=== PATIENT | male | born 1965 | race Caucasian/White ===

== ENCOUNTER 2023-08-05 09:49 | Outpatient (CLI) | payer OTHER, SELFPAY ==
--- NOTE | 2023-08-05 10:15 | MR_ITS ---
[address] [address] Phone:?[phone] Fax:?[phone] Referring Physician Information: Ken Cedillo M.D. [address] [place] [id number] Phone:?[phone] Fax:?[phone] Patient:?Omid Corral D.O.B:?1965 Sex:?Male Phone:?[phone] [facility] MRN:?[id number] Exam Date:?08/05/2023 EXAM: MRI OF THE RIGHT KNEE CLINICAL INFORMATION: The patient is a 57-year-old with right knee pain. Evaluate for meniscal tear. PRIOR SURGERY: None reported. COMPARISON STUDIES: Comparison is made to prior radiographs dated 07/27/2023. TECHNICAL INFORMATION: Imaging was performed on a high-field, 1.5 Charlee MR scanner. Axial proton-density and fat-suppressed T2 imaging of the right knee was performed in addition to coronal proton-density and coronal STIR imaging. Sagittal proton-density and fat-suppressed proton-density imaging was also produced. FINDINGS: Articular/Extraarticular collections: Effusion: Moderate. Popliteal cyst: Minimal. Loose bodies: No well-defined intra-articular loose bodies are identified. Subcutaneous and extraarticular soft tissues: Nonspecific subcutaneous soft tissue edema and/or hemorrhage can be seen along the anterior and medial aspects of the right knee. Osseous structures: There are broad-based areas of increased marrow signal intensity seen along the central and medial aspects of the medial femoral condyle and medial tibial plateau with curvilinear low signal intensity along the posterior weightbearing surfaces. The findings are nonspecific but may relate to areas of traumatic or stress change. The findings may also relate to reactive bony change relating to meniscal tearing and chondral loss described below. There are areas of cortical irregularity, subcortical edema, and subcortical cystic change along the lateral articular surfaces of the patellofemoral articulation, in keeping with chondromalacia and chondral loss described below. Benign-appearing cystic or chondroid changes within the distal femoral diaphysis can be seen on sagittal series 6 image 13 and on coronal series 8 image 14. No other bony abnormalities about the knee are seen. Ligamentous structures: ACL: Intact and normal in appearance. PCL: Intact and normal in appearance. MCL: Intact and normal in appearance. LCL: Intact and normal in appearance. Posterolateral corner: Intact and normal in appearance. Posteromedial corner: No posteromedial corner soft tissue injury. Semimembranosus and pes anserine tendons demonstrate no tendinopathy or associated bursitis. Extensor mechanism/Patellar retinacular structures: Patellar tendon: Intact, without tendinopathy. Quadriceps tendon: Intact, without tendinopathy. Retinacula: The medial and lateral retinacula are intact. The medial patellofemoral ligament is intact. Medial compartment: Medial meniscus: The medial meniscus is abnormal in appearance. There is apical free edge as well as superior and inferior surface tearing of the posterior horn of the medial meniscus seen on sagittal series 6 images 22 and 23, measuring approximately 14 mm in mediolateral dimension. The middle and anterior portions of the medial meniscus appear intact. No definite parameniscal cyst formation is identified. Medial femoral condyle: Full-thickness and near full-thickness chondral loss can be seen along the central and posterior weightbearing surfaces of the medial femoral condyle on sagittal series 6 image 23 and on coronal series 8 image 19, measuring 22 mm in greatest dimension. Medial tibial plateau: Grade II to III chondromalacia can be seen along the central and posterior weightbearing surfaces of the medial tibial plateau. Lateral compartment: Lateral meniscus: Degeneration of the lateral meniscus can be seen without definite areas of well-defined tearing. There is no evidence for parameniscal cyst formation. No meniscocapsular separation injury is identified. Lateral femoral condyle: Full-thickness or near full-thickness chondral loss can be seen along the central and posterior weightbearing surfaces of the lateral femoral condyle. Lateral tibial plateau: Broad-based changes of grade II to III chondromalacia can be seen along the weightbearing surfaces of the lateral tibial plateau. Patellofemoral compartment: Patella: Broad-based, full-thickness chondral loss can be seen along the lateral patellar facet on axial series 3 image 6, measuring 32 mm in mediolateral dimension. Underlying bony changes are seen. Trochlea: Full-thickness and near full-thickness chondral loss can be seen along the lateral articular surfaces of the femoral trochlea. Underlying bony changes are noted. Neurovascular: No definite neurovascular abnormalities are seen. CONCLUSION: 1. Broad-based tearing of the posterior horn of the medial meniscus. No definite lateral meniscal tearing is seen. 2. 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 3. Traumatic versus stress change along the central and medial articular surfaces of the medial femoral condyle and medial tibial plateau. The findings may also relate to reactive bony change. 4. The cruciate and collateral ligaments appear intact. 5. Moderate knee joint effusion. [facility] Electronically signed on 08/05/2023 4:23:00 PM by Marcel Melvin M.D.
== END 2023-08-05 09:50 | disposition home or self-care (01) ==
LOC: MRI 09:50
PROVIDERS: PCP Family Medicine; Visit Provider Orthopaedic Surgery
DX: M25.561 Pain in right knee (principal); S83.241A Other tear of medial meniscus, current injury, right knee, initial encounter; M94.261 Chondromalacia, right knee; M25.461 Effusion, right knee
CPT/HCPCS: 73721